=== PATIENT | male | born 2005 | race Caucasian/White ===

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

== ENCOUNTER 2024-01-27 05:29 | Emergency (ER) | payer MEDICAID ==
[~2024-01-27] VITALS: Ht 182.9 cm; Wt 63.6 kg
[2024-01-27 05:40] VITALS: BP 120/72; PULSE 66; TEMP 98.1; O2SAT 96
[2024-01-27 07:09] LABS: BASOPHILS % (AUTO) 0.3 % (0-1); EOSINOPHILS # (AUTO) 0.3 X10'3 (0-0.9); HEMOGLOBIN 15.2 g/dl (14.0-17.9); LYMPHOCYTES % (AUTO) 9.9 % (21-51); MEAN CORPUSCULAR HGB CONC 34.6 g/dL (33.0-36.5); MEAN CORPUSCULAR VOLUME 89.7 FL (78-98); MEAN PLATELET VOLUME 8.3 FL (7.4-10.4); MONOCYTES # (AUTO) 0.7 X10'3 (0-0.9); MONOCYTES % (AUTO) 7.2 % (2-12); NEUTROPHILS # (AUTO) 7.8 X10'3 (1.8-7.7); NEUTROPHILS % (AUTO) 79.6 % (42-75); PLATELET COUNT 240 X10'3 (140-440); RED BLOOD COUNT 4.91 X10'6 (4.70-6.10); RED CELL DISTRIBUTION WIDTH 14.3 % (11.5-14.5); WHITE BLOOD COUNT 9.9 X10'3 (4.5-11.0)
[2024-01-27 07:18] LABS: ALANINE AMINOTRANSFERASE 19 U/L (12-78); ALBUMIN 4.3 G/DL (3.4-5.0); ALBUMIN/GLOBULIN RATIO 1.3 (1.1-1.5); ALKALINE PHOSPHATASE 86 IU/L (20-180); ANION GAP 14 (8-16); ASPARTATE AMINO TRANSFERASE 19 U/L (10-37); BILIRUBIN,TOTAL 1.4 MG/DL (0.1-1.0); BLOOD UREA NITROGEN 14 MG/DL (7-18); BUN/CREATININE RATIO 17.3 (10.0-20.0); CALCIUM 9.3 MG/DL (8.5-10.1); CHLORIDE 106 MMOL/L (99-107); CREATININE 0.81 MG/DL (0.60-1.10); GLUCOSE 115 MG/DL (70-104); POTASSIUM 3.8 MMOL/L (3.5-5.1); SODIUM 144 MMOL/L (135-145); TOTAL CARBON DIOXIDE 23.7 MMOL/L (24-32); TOTAL PROTEIN 7.6 G/DL (6.4-8.2); eCRCL 132 ML/MIN; eGFR > 90 ML/MIN
[2024-01-27 07:26] LABS: SALICYLATE 1.7 MG/DL (4.0-20.0); THYROID STIMULATING HORMONE 1.16 ulU/ml (0.34-4.50)
[2024-01-27 07:43] LABS: URINE AMPHETAMINE SCREEN NEGATIVE (Neg); URINE BARBITUATE SCREEN NEGATIVE (Neg); URINE BENZODIAZEPINES SCREEN NEGATIVE (Neg); URINE CANNABINOID SCREEN POSITIVE (Neg); URINE COCAINE SCREEN NEGATIVE (Neg); URINE METHADONE SCREEN NEGATIVE (Neg); URINE OPIATE SCREEN NEGATIVE (Neg); URINE PHENCYCLIDINE SCREEN NEGATIVE (Neg)
[2024-01-27 07:45] VITALS: RESP 12
[2024-01-27 07:47] LABS: BILIRUBIN,URINE NEGATIVE (Neg); CLARITY,URINE CLEAR (Clear); COLOR,URINE YELLOW (Yellow); GLUCOSE, URINE NEGATIVE (Neg); KETONES,URINE TRACE mg/dl (Neg); LEUKOCYTE ESTERASE ,URINE NEGATIVE (Neg); NITRITES, URINE NEGATIVE (Neg); OCCULT BLOOD,URINE NEGATIVE (Neg); PROTEIN,URINE NEGATIVE (Neg); UROBILINOGEN,URINE 0.2 E.U/dL (0.2-1.0)
[2024-01-27 07:55] LABS: ACETAMINOPHEN < 2.0 UG/ML (10-30); ETHANOL < 10 MG/DL (<10)
[2024-01-27 08:05] LABS: UA COLLECTION TYPE CLN CATCH MIDSTREAM
== END 2024-01-27 12:10 | disposition home or self-care (01) ==
LOC: ER 05:30
DX: S60.811A Abrasion of right wrist, initial encounter (principal); Z20.822 Contact with and (suspected) exposure to COVID-19; S70.312A Abrasion, left thigh, initial encounter; S50.811A Abrasion of right forearm, initial encounter; X78.8XXA Intentional self-harm by other sharp object, initial encounter; Y93.89 Activity, other specified; Y92.89 Other specified places as the place of occurrence of the external cause; Y99.8 Other external cause status
CPT/HCPCS: 36415; 80053; 80305; 80320; 80329; 81003; 84443; 85025; 87811; 99285

== ENCOUNTER 2024-06-17 14:39 | Emergency (ER) | payer MEDICAID ==
[~2024-06-17] VITALS: Ht 180.3 cm; Wt 59.3 kg
[2024-06-17 14:59] VITALS: BP 115/70; PULSE 76; RESP 18; O2SAT 100
[2024-06-17 16:14] LABS: BILIRUBIN,URINE NEGATIVE (Neg); CLARITY,URINE SLIGHTLY CLOUDY (Clear); COLOR,URINE YELLOW (Yellow); GLUCOSE, URINE NEGATIVE (Neg); KETONES,URINE NEGATIVE (Neg); LEUKOCYTE ESTERASE ,URINE NEGATIVE (Neg); NITRITES, URINE NEGATIVE (Neg); OCCULT BLOOD,URINE NEGATIVE (Neg); PH,URINE 6.5 (4.8-8.0); PROTEIN,URINE NEGATIVE (Neg)
[2024-06-17 16:51] LABS: UA COLLECTION TYPE CLN CATCH MIDSTREAM
[2024-06-17 16:53] LABS: BACTERIA,URINE FEW /HPF (Neg); MUCUS STRANDS MODERATE /LPF (Neg); RBC,URINE 0-2 /HPF (0-2); SQUAMOUS EPITHELIAL CELL,UR FEW /LPF (FEW)
[2024-06-17] MEDS: azithromycin 250mg tablet PO STA (16:55)
[2024-06-17 17:00] VITALS: TEMP 98
[2024-06-20 08:16] LABS: CHLAMYDIA TRACHOMATIS, NAA Positive (Negative)
== END 2024-06-17 17:21 | disposition home or self-care (01) ==
LOC: ER 14:39
DX: A74.9 Chlamydial infection, unspecified (principal); R30.0 Dysuria
CPT/HCPCS: 36415; 81001; 87088; 87491; 99283